=== PATIENT | male | born 1935 | race Caucasian/White ===

== ENCOUNTER 2016-07-21 06:36 | Day surgery (SDC) | payer OTHER ==
[2016-07-21] VITALS (7 sets, daily range): BP systolic 108–139; BP diastolic 51–77; PULSE 47–68; RESP 16–20; TEMP 97.5–98; O2SAT 96–100
[~2016-07-21] VITALS: Ht 167.6 cm; Wt 70.0 kg
[2016-07-21] MEDS ORDERED: POVIDONE IODINE 5% (ANTISEPSIS KIT) 4 APPLICATIONS EACH NARE SCH (07:00)
[2016-07-21] MEDS ORDERED: ceFAZolin 2 GM PREMIX 50 ML - implanted port/tunneled catheter insertion IV SCH (07:00)
[2016-07-21] MEDS ORDERED: VANCOMYCIN 1000 MG/NS 250 ML - implanted port/tunneled catheter IV SCH ×2 (07:00)
[2016-07-21] MEDS ORDERED: SODIUM CHLORIDE 0.9% 1000 ML IV SCH (07:00)
[2016-07-21] MEDS ORDERED: CHLORHEXIDINE GLUCONATE 2 % 1 PACK (2 CLOTHS) TOPICAL SCH (07:00)
[2016-07-21] MEDS ORDERED: OMEP20TA PO (07:04)
[2016-07-21] MEDS ORDERED: AMLO5CAP PO (07:04)
[2016-07-21] MEDS ORDERED: TAMS0.4C4 PO (07:04)
[2016-07-21] MEDS ORDERED: MIDAZOLAM HCL 5 MG/5 ML VIAL ONE (07:59)
[2016-07-21] MEDS ORDERED: fentaNYL CITRATE 250 MCG/5 ML AMP ONE (07:59)
[2016-07-21] MEDS ORDERED: LIDOCAINE 1%/EPINEPHrine 1:100,000 SOLN 20 ML VIAL ONE (08:05)
--- NOTE | 2016-07-21 08:41 | PD.RAD ---
Post Procedure Progress Note Pre Procedure Diagnosis: (1) Bladder cancer Post Procedure Diagnosis: (1) Bladder cancer Procedure Date: July 21, 2016 Supervising Radiologist: Mesfin Mendez Estimated blood loss: 2cc Anesthesia: Local, Conscious Sedation Plan of Activity Patient to Unit: ROPU Patient Condition: Good Additional Comments: Port placed via the right IJ without difficulty. Catheter position confirmed with good blood return Catheter ok for use Full report to follow See PACS Report for procedural detail/treatment Mesfin Mendez MD July 21, 2016 08:41
[2016-07-21] MEDS ORDERED: SODIUM CHLORIDE 0.9% FLUSH 10 ML FLUSH IVF PRN (08:45)
--- NOTE | 2016-07-21 09:07 | RADRPT ---
EXAM DATE/TIME: 07/21/2016 08:03 [facility] COMPARISON: No previous studies available for comparison. INDICATIONS : Patient with a history of urinary bladder cancer, needs chemotherapy. MEDICAL HISTORY : HTN Hematuria GERD Inflammatory bowel disease SURGICAL HISTORY : Pelvic mass biopsy ENCOUNTER: Initial ACUITY: 2 months PAIN SCORE: 0/10 FLUORO TIME: 0.4 minutes IMAGE SERIES: 1 SEDATION TIME: 30 minutes ACCESS: Right internal jugular vein SEDATION: 1.) 3 mg midazolam (Versed) IV 2.) 150 mcg fentanyl (Sublimaze) IV Prophylactic antibiotics were administered with appropriate pre-procedure timing. Vancomycin within 2 hours of procedure, Ancef (or alternative) within 1 hour of procedure. DEVICE: 1. 8 [place] single lumen Smart port, power PROCEDURE : 1. Continuous pulse oximetry and EKG monitoring. 2. Intravenous conscious sedation. 3. Ultrasound guidance for venous access. 4. Fluoroscopic guided implantable central venous port placement. The patient was placed supine. The neck was prepped in sterile fashion. Full sterile technique was u sed, including cap, mask, sterile gloves and gown, and a large sterile sheet. Hand hygiene and 2% ch lorhexidine Betadine was utilized per protocol for cutaneous antisepsis with appropriate dry time for site. The skin and subcutaneous tissues were infiltrated with local anesthetic solution. Under direct ultrasound guidance, central venous access was accomplished in the targeted vessel. The ultrasound images depicting access guidance were stored and saved to PACS for permanent record. A s ubcutaneous pocket was created using blunt dissection. The port was introduced to the pocket. The c atheter tubing was fed through a subcutaneous tunnel to the venotomy site. The catheter tubing was c ut to a suitable length and then was introduced through a valved Peel-Away sheath and positioned with catheter tubing tip at the cavo-atrial junction level. The pocket incision was closed with subcutic ular Vicryl suture. Steri-Strips were applied. The port was flushed and locked with heparin solutio n per protocol. Sterile dressing was applied to the site. The patient tolerated the procedure well. Conscious sedation was performed with the prescribed dosages and duration as above in the presence of an independent trained radiology nurse to assist in the monitoring of the patient. EKG and oximetry remained stable throughout the procedure. The patient tolerated the procedure well and there were no complications. The patient was sent to post anesthesia recovery in stable condition. CONCLUSION: Uncomplicated ultrasound and fluoroscopic guided implanted central venous port catheter placement as described in detail above. An 8 [place] Power port was placed. Mesfin Mendez MD on July 21, 2016 at 9:04 Board Certified Radiologist. This report was verified electronically.
== END 2016-07-21 11:30 | disposition home or self-care (01) ==
LOC: HROP 06:36 → HRIP 06:37 → HROP 11:30
PROVIDERS: ATTEND Internal Medicine Hematology & Oncology
DX: C67.9 Malignant neoplasm of bladder, unspecified (principal); K21.9 Gastro-esophageal reflux disease without esophagitis; I10 Essential (primary) hypertension
CPT/HCPCS: 36561; 76937; 77001; 99152; 99153; C1788; J0690; J1642; J2250; J3010; J3370; J7030; J7050

== ENCOUNTER 2017-02-03 12:54 | Day surgery (SDC) | payer OTHER ==
[~2017-02-03 12:54] MED LIST: AMLO5CAP PO; OMEP20TA93 PO; TAMS0.4C4 PO
[2017-02-03] MEDS ORDERED: IOHEXOL 350 MG/ML 50 ML BTL (for RAD DIAG) IVCONTRAST ONE (12:55)
[2017-02-03 13:15] VITALS: BP 137/71; PULSE 84; RESP 16; TEMP 98.7; O2SAT 98
--- NOTE | 2017-02-03 17:50 | RADRPT ---
EXAM DATE/TIME: 02/03/2017 13:56 [facility] COMPARISON: [id number], [place], W US, RIGHT, July 21, 2016, 8:03. INDICATIONS : Patient with a history of bladder cancer. MEDICAL HISTORY : HTN Hematuria GERD Inflammatory bowel disease SURGICAL HISTORY : Pelvic mass biopsy ENCOUNTER: Subsequent ACUITY: 7-11 months PAIN SCORE: 0/10 FLUORO TIME: 0.2 minutes IMAGE SERIES: 1 CONTRAST: 10 cc Omnipaque (iohexol) 350 PROCEDURE : 1. Access of [id number]. 2. Port patency injection. The risks, benefits and alternatives to the procedure were explained and verbal and written consent w as obtained. The patient was placed supine. The port was prepped in sterile fashion. Full sterile t echnique was used, including cap, mask, sterile gloves and gown, and a large sterile sheet. Hand hyg iene and 2% chlorhexidine prep was utilized per protocol for cutaneous antisepsis with appropriate dr y time for site. The previously placed port was accessed and positive contrast was injected for evaluation. Injection demonstrates the port to be in excellent position and function normally. CONCLUSION: 1. The Doifiz-a-Iewi is in excellent position and functions normally. Mesfin Mendez MD on February 03, 2017 at 17:47 Board Certified Radiologist. This report was verified electronically.
== END 2017-02-03 14:20 | disposition home or self-care (01) ==
LOC: HROP 12:54 → HRIP 12:57 → HROP 14:20
PROVIDERS: ATTEND Internal Medicine Hematology & Oncology
DX: Z45.2 Encounter for adjustment and management of vascular access device (principal); C67.9 Malignant neoplasm of bladder, unspecified
CPT/HCPCS: 36598; J1642; Q9967